=== PATIENT | female | born 1950 | race Caucasian/White ===

== ENCOUNTER 2021-12-06 17:45 | Inpatient (IN) | payer MEDICARE, OTHER ==
[~2021-12-06] VITALS: Ht 152.4 cm; Wt 64.0 kg
[~2021-12-06 17:45] MED LIST: ASPI-605 PO; BENA40TA8 PO; BENFOTIAMINE PO; METF-441 PO; RANO500T3 PO
[2021-12-06] MEDS ORDERED: IV NORMAL SALINE 500 ML BAG IV ONE (18:00)
[2021-12-06] MEDS ORDERED: MORPHINE SULFATE 4 MG/1 ML DISP.SYRIN IV ONE (18:00)
[2021-12-06] MEDS ORDERED: ONDANSETRON 4 MG/2 ML VIAL IV ONE (18:00)
[2021-12-06 18:42] LABS: HEMATOCRIT 35.6 % (31.2-41.9); MEAN CORPUSCULAR HEMOGLOBIN 33.2 uug (24.7-32.8); MEAN CORPUSCULAR VOLUME 95.4 fL (75.5-95.3); PLATELET COUNT (AUTO) 115 K/uL (179-408)
[2021-12-06 18:47] LABS: CARBON DIOXIDE 25 mmol/L (21-32); CHLORIDE 102 mmol/L (98-107); CREATININE 0.8 mg/dL (0.6-1.3); GLUCOSE 213 mg/dL (74-106); POTASSIUM 4.1 mmol/L (3.5-5.1); UREA NITROGEN, BLOOD 20 mg/dL (7-18)
[2021-12-06 18:52] LABS: ALANINE AMINOTRANSFERASE 29 U/L (14-59); ALKALINE PHOSPHATASE 73 U/L (50-136); ASPARTATE AMINOTRANSFERASE 21 U/L (15-37); LIPASE 168 U/L (73-393); TOTAL PROTEIN, SERUM 7.1 g/dL (6.4-8.2)
[2021-12-06] MEDS ORDERED: MORPHINE SULFATE 4 MG/1 ML DISP.SYRIN ONE (19:18)
[2021-12-06] MEDS ORDERED: ONDANSETRON 4 MG/2 ML VIAL ONE ×2 (19:18→19:24)
[2021-12-06 19:21] LABS: EOSINOPHILS % (MANUAL) 2 % (0-8); LYMPHOCYTES % (MANUAL) 26 % (20-40); MONOCYTES % (MANUAL) 5 % (2-10); NEUTROPHILS % (MANUAL) 67 % (42-75)
[2021-12-06] MEDS ORDERED: SWABABLE VALVE TRANSFER SET EA MC ONE (19:22)
[2021-12-06] MEDS ORDERED: IOHEXOL 300MG/ML 100 ML INFUS..BTL ONE (19:22)
[2021-12-06] MEDS ORDERED: IV NORMAL SALINE 250 ML IV ONE (19:22)
[2021-12-06 19:25] LABS: *BILIRUBIN,URIN NEGATIVE (NEGATIVE); *BLOOD, URINE NEGATIVE (NEGATIVE); *CLARITY,URINE CLEAR (CLEAR); *COLOR,URINE YELLOW (YELLOW); *KETONES,URINE NEGATIVE (NEGATIVE); *UROBILINOGEN,URINE 0.2 E.U./dl (NORMAL); LEUKOCYTE ESTERASE ,URINE NEGATIVE (NEGATIVE); NITRITE, URINE NEGATIVE (NEGATIVE); UGLUCOSE NEGATIVE (NEGATIVE)
[2021-12-06] MEDS ORDERED: PIPERACILLIN SODIUM/TAZOBACTAM 3.375 G in IV DEXTROSE 5% 50 ML IV ONE (21:15)
[2021-12-06] MEDS ORDERED: PIPERACILLIN/TAZOBACTAM/D5W 50 ML IV ONE (21:51)
[2021-12-07] MEDS ORDERED: ACETAMINOPHEN 650 MG SUPP.RECT RC PRN
[2021-12-07] MEDS ORDERED: ONDANSETRON 4 MG/2 ML VIAL IV PRN
[2021-12-07] MEDS: IV D5/ 0.9% NACL 1,000 ML IV PRN ×2 (00:37→14:06)
[2021-12-07 04:00] VITALS: BP 136/56
[2021-12-07] MEDS ORDERED: PIPERACILLIN SODIUM/TAZO 3.375 GM VIAL ONE (05:59)
[2021-12-07] MEDS ORDERED: PIPERACILLIN SODIUM/TAZOBACTAM 3.375 G in IV DEXTROSE 5% 50 ML IV SCH ×2 (06:00→14:00)
[2021-12-07 06:44] LABS: HEMATOCRIT 34.8 % (31.2-41.9); MEAN CORPUSCULAR HEMOGLOBIN 32.5 uug (24.7-32.8); PLATELET COUNT (AUTO) 98 K/uL (179-408)
[2021-12-07 07:03] LABS: BILIRUBIN,TOTAL 0.5 mg/dL (0.2-1.0); CREATININE 0.7 mg/dL (0.6-1.3); MAGNESIUM 1.7 mg/dL (1.8-2.4); PHOSPHOROUS 3.9 mg/dL (2.5-4.9); POTASSIUM 3.8 mmol/L (3.5-5.1); TOTAL PROTEIN, SERUM 6.1 g/dL (6.4-8.2)
[2021-12-07] MEDS: PANTOPRAZOLE SODIUM 40 MG VIAL IV SCH (09:06)
[2021-12-07] MEDS: MAGNESIUM SULFATE/D5W 100 ML IV SCH ×2 (09:50→10:52)
[2021-12-07 10:59] VITALS: BP 131/58
[2021-12-07] MEDS: PIPERACILLIN SODIUM/TAZOBACTAM 3.375 G in IV DEXTROSE 5% 100 ML IV SCH ×2 (14:04→21:36)
[2021-12-07] MEDS ORDERED: DEXTROSE 50% 50 ML DISP.SYRIN IV PRN (15:45)
[2021-12-07 15:56] VITALS: BP 139/54
[2021-12-07] MEDS: BLOOD SUGAR DIAGNOSTIC 1 EACH STRIP VI SCH ×2 (16:48→21:50)
[2021-12-07] MEDS: INSULIN REGULAR, HUMAN 300 UNIT/3 ML VIAL SQ PRN (18:02)
[2021-12-07 20:00] VITALS: BP 124/57
[2021-12-08] MEDS: IV D5/ 0.9% NACL 1,000 ML IV PRN (03:47)
[2021-12-08 04:00] VITALS: BP 143/52
[2021-12-08] MEDS: PIPERACILLIN SODIUM/TAZOBACTAM 3.375 G in IV DEXTROSE 5% 100 ML IV SCH ×2 (06:28→13:01)
[2021-12-08] MEDS: BLOOD SUGAR DIAGNOSTIC 1 EACH STRIP VI SCH ×3 (06:40→16:37)
[2021-12-08 06:58] LABS: MEAN CORPUSCULAR HEMOGLOBIN 32.6 uug (24.7-32.8); MEAN CORPUSCULAR VOLUME 95.9 fL (75.5-95.3); PLATELET COUNT (AUTO) 95 K/uL (179-408)
[2021-12-08 07:34] LABS: BILIRUBIN,DIRECT 0.2 mg/dL (0.0-0.2); BILIRUBIN,TOTAL 0.5 mg/dL (0.2-1.0); CREATININE 0.7 mg/dL (0.6-1.3); MAGNESIUM 1.8 mg/dL (1.8-2.4); POTASSIUM 3.4 mmol/L (3.5-5.1); TOTAL PROTEIN, SERUM 5.8 g/dL (6.4-8.2)
[2021-12-08] MEDS: PANTOPRAZOLE SODIUM 40 MG VIAL IV SCH (08:15)
[2021-12-08] MEDS: INSULIN REGULAR, HUMAN 300 UNIT/3 ML VIAL SQ PRN ×3 (08:21→16:40)
[2021-12-08] MEDS ORDERED: POTASSIUM CHLORIDE 20 MEQ POWDER PACKET PO ONE (09:45)
[2021-12-08 11:47] VITALS: BP 146/61
[2021-12-08] MEDS ORDERED: AMOX-430 PO (12:55)
[2021-12-08 16:53] VITALS: BP 139/65
== END 2021-12-08 17:35 | disposition home or self-care (01) | DRG 446 ==
LOC: ER 17:47 → TELE3 23:09 → MEDSURG3 12-07 16:36
PROVIDERS: ADMIT Nurse Practitioner Acute Care; ATTEND Nurse Practitioner Acute Care
DX: K80.42 Calculus of bile duct with acute cholecystitis without obstruction (principal); E11.9 Type 2 diabetes mellitus without complications; G89.29 Other chronic pain; K76.0 Fatty (change of) liver, not elsewhere classified; D72.819 Decreased white blood cell count, unspecified; E78.5 Hyperlipidemia, unspecified; K74.60 Unspecified cirrhosis of liver; I10 Essential (primary) hypertension; Z79.84 Long term (current) use of oral hypoglycemic drugs; N94.89 Other specified conditions associated with female genital organs and menstrual cycle; Z20.822 Contact with and (suspected) exposure to COVID-19; A08.4 Viral intestinal infection, unspecified
CPT/HCPCS: 36415; 70030-TC; 83690; 83735; 84100; 85025; 85610; A4663; C9113; G0378; J1815; J2270; J2405; J2543; J3475; J7030; J7042; J7050; J7060; Q9967

== ENCOUNTER 2022-06-14 18:26 | Inpatient (IN) | payer OTHER ==
[~2022-06-14] VITALS: Ht 154.9 cm; Wt 63.5 kg
[~2022-06-14 18:26] MED LIST changes: +AMOX-430 PO
--- NOTE | 2022-06-14 19:30 | NUR ---
pt came to er and states her blood sugar is low.
[2022-06-14 20:19] LABS: HEMATOCRIT 39.8 % (31.2-41.9); MEAN CORPUSCULAR HEMOGLOBIN 32.3 uug (24.7-32.8); PLATELET COUNT (AUTO) 124 K/uL (179-408)
[2022-06-14 20:24] LABS: *BILIRUBIN,URIN NEGATIVE (NEGATIVE); *BLOOD, URINE NEGATIVE (NEGATIVE); *CLARITY,URINE CLEAR (CLEAR); *COLOR,URINE YELLOW (YELLOW); *KETONES,URINE TRACE (NEGATIVE); LEUKOCYTE ESTERASE ,URINE NEGATIVE (NEGATIVE); NITRITE, URINE NEGATIVE (NEGATIVE); UGLUCOSE 2+ (NEGATIVE)
[2022-06-14 20:34] LABS: BILIRUBIN,DIRECT 1.2 mg/dL (0.0-0.2); BILIRUBIN,TOTAL 1.8 mg/dL (0.2-1.0); TOTAL PROTEIN, SERUM 7.7 g/dL (6.4-8.2)
[2022-06-14 20:37] LABS: CARBON DIOXIDE 25 mmol/L (21-32); CHLORIDE 104 mmol/L (98-107); CREATININE 0.7 mg/dL (0.6-1.3); GLUCOSE 121 mg/dL (74-106); UREA NITROGEN, BLOOD 18 mg/dL (7-18)
--- NOTE | 2022-06-14 20:42 | NUR ---
pt went to cat scan and has returned.
--- NOTE | 2022-06-14 21:33 | NUR ---
informed DR. Arias that the pt is having pain. he will order some meds.
[2022-06-14] MEDS ORDERED: IV NORMAL SALINE 250 ML IV ONE (21:34)
[2022-06-14] MEDS ORDERED: IOHEXOL 300MG/ML 50 ML VIAL ONE (21:34)
[2022-06-14] MEDS ORDERED: SWABABLE VALVE TRANSFER SET EA MC ONE (21:34)
[2022-06-14] MEDS ORDERED: HYDROMORPHONE 1 MG/1 ML DISP.SYRIN ONE ×2 (21:37→23:31)
[2022-06-14] MEDS ORDERED: ONDANSETRON 4 MG/2 ML VIAL ONE (21:37)
[2022-06-14] MEDS ORDERED: ONDANSETRON 4 MG/2 ML VIAL IV ONE (21:45)
[2022-06-14] MEDS ORDERED: HYDROMORPHONE 1 MG/1 ML DISP.SYRIN IV ONE ×2 (21:45→23:15)
--- NOTE | 2022-06-14 22:19 | NUR ---
pt returned from cat scan.
--- NOTE | 2022-06-15 00:03 | NUR ---
call to [facility] panel Joey Georges will call back for admission.
--- NOTE | 2022-06-15 00:19 | NUR ---
Toño Sheffield called back for admission orders.
--- NOTE | 2022-06-15 00:29 | NUR ---
report was given to Mónica CURIEL pt to go to room 329.
--- NOTE | 2022-06-15 00:43 | NUR ---
pt transported via w/c with all belongings, VEENA Sales in room to receive the pt.
[2022-06-15] MEDS ORDERED: ACETAMINOPHEN 325 MG TABLET PO PRN (00:45)
[2022-06-15] MEDS ORDERED: HYDROMORPHONE 1 MG/1 ML DISP.SYRIN IV PRN (00:45)
[2022-06-15] MEDS ORDERED: ENOXAPARIN SODIUM 40 MG/0.4 ML DISP.SYRIN SQ SCH ×2 (00:45→21:00)
[2022-06-15] MEDS ORDERED: ONDANSETRON 4 MG/2 ML VIAL IV PRN (00:45)
[2022-06-15] MEDS ORDERED: REMEDY ESSENTIAL ZINC PASTE 113 GM TP PRN (00:45)
[2022-06-15] MEDS ORDERED: MAGNESIUM HYDROXIDE 30 ML LIQUID UDC PO PRN (00:45)
[2022-06-15] MEDS ORDERED: DEXTROSE 50% 50 ML DISP.SYRIN IV PRN (00:45)
[2022-06-15] MEDS ORDERED: MORPHINE SULFATE 2 MG/1 ML DISP.SYRIN IV PRN (00:45)
[2022-06-15] MEDS ORDERED: ZOLPIDEM 5 MG TABLET PO PRN (00:45)
--- NOTE | 2022-06-15 01:15 | NUR ---
received patient from ER via wheelchair .dx; acute pancreatitis. [id number].patient Turkish speaking but able to speak and understand Wallisian .patient able to walk to the bathroom hand held assist , noted bilateral lower extremities weakness . patient voided . escorted back to bed . advised patient to call for assistance and not to get oob by self call light placed with in reach . no s/s of pain no s/s of respiratory distress on room air oriented with room and call light .
[2022-06-15 01:30] VITALS: BP 104/50
--- NOTE | 2022-06-15 02:00 | NUR ---
instructed patient that she is NPO - NOTHING BY MOUTH .
[2022-06-15] MEDS: IV NS 1000 ML 1,000 ML IV PRN ×2 (02:15→18:37)
--- NOTE | 2022-06-15 02:15 | NUR ---
started on normal saline at 75 ml /hr via the right ac heplock .
--- NOTE | 2022-06-15 03:48 | NUR ---
patient called requesting for pain medication given Dilaudid for pain 06/19 , she said the pain is to her right shoulder and abdomen area .
[2022-06-15 04:34] VITALS: BP 152/62
[2022-06-15] MEDS: BLOOD SUGAR DIAGNOSTIC 1 EACH STRIP VI SCH ×4 (06:34→21:01)
[2022-06-15] MEDS ORDERED: MORPHINE SULFATE 4 MG/1 ML DISP.SYRIN IV PRN (08:16)
[2022-06-15] MEDS: LISINOPRIL 20 MG TABLET PO SCH (09:04)
[2022-06-15] MEDS: ASPIRIN EC 81 MG TABLET.DR PO SCH (09:04)
[2022-06-15] MEDS: levoFLOXacin 500 MG/D5W 500 MG in PREMIXED 1 EACH IV SCH (10:57)
[2022-06-15 11:47] VITALS: BP 102/47
[2022-06-15 15:24] VITALS: BP 106/45
[2022-06-15] MEDS: INSULIN REGULAR, HUMAN 300 UNIT/3 ML VIAL SQ PRN ×2 (16:41→21:04)
[2022-06-15 19:53] VITALS: BP 113/48
[2022-06-16 04:36] VITALS: BP 122/50
--- NOTE | 2022-06-16 06:45 | NUR ---
Patient slept intermittently during the night. Denies pain or any discomfort. In no acute distress. Assisted to the bathroom. Bed in locked and low position. Call light within easy reach.
[2022-06-16] MEDS: BLOOD SUGAR DIAGNOSTIC 1 EACH STRIP VI SCH (06:51)
[2022-06-16 07:08] LABS: HEMATOCRIT 32.5 % (31.2-41.9); MEAN CORPUSCULAR HEMOGLOBIN 33.7 uug (24.7-32.8); MEAN CORPUSCULAR VOLUME 95.9 fL (75.5-95.3); PLATELET COUNT (AUTO) 100 K/uL (179-408)
[2022-06-16 07:17] LABS: BILIRUBIN,DIRECT 0.2 mg/dL (0.0-0.2); BILIRUBIN,TOTAL 0.6 mg/dL (0.2-1.0); CREATININE 0.7 mg/dL (0.6-1.3); POTASSIUM 3.7 mmol/L (3.5-5.1)
[2022-06-16 07:33] LABS: BILIRUBIN,TOTAL 0.6 mg/dL (0.2-1.0); CREATININE 0.7 mg/dL (0.6-1.3); POTASSIUM 3.7 mmol/L (3.5-5.1)
[2022-06-16 07:50] LABS: EOSINOPHILS % (MANUAL) 2 % (0-8); LYMPHOCYTES % (MANUAL) 22 % (20-40); MONOCYTES % (MANUAL) 11 % (2-10); NEUTROPHILS % (MANUAL) 65 % (42-75)
[2022-06-16 08:00] VITALS: BP 122/50
[2022-06-16] MEDS: LISINOPRIL 20 MG TABLET PO SCH (08:00)
[2022-06-16] MEDS: ASPIRIN EC 81 MG TABLET.DR PO SCH (08:00)
[2022-06-16] MEDS: levoFLOXacin 500 MG/D5W 500 MG in PREMIXED 1 EACH IV SCH (10:22)
--- NOTE | 2022-06-16 12:14 | NUR ---
dc orders received noted and carried out.dc instruction and education given to the pt and her son .dc heplock per md orders,pt left the facility via private car in stable condition
== END 2022-06-16 11:50 | disposition home or self-care (01) | DRG 440 ==
LOC: ER 18:26 → MEDSURG3 06-15 00:21
PROVIDERS: ADMIT Internal Medicine; ATTEND Internal Medicine
DX: K85.90 Acute pancreatitis without necrosis or infection, unspecified (principal); K74.60 Unspecified cirrhosis of liver; R74.01 Elevation of levels of liver transaminase levels; Z79.84 Long term (current) use of oral hypoglycemic drugs; Z20.822 Contact with and (suspected) exposure to COVID-19; K42.9 Umbilical hernia without obstruction or gangrene; E11.9 Type 2 diabetes mellitus without complications; K59.00 Constipation, unspecified
CPT/HCPCS: 36415; 70030-TC; 70450; 71045; 78445; 83690; 84484; 85025; 85730; 93005; A4663; A9537; G0378; J1170; J1650; J1815; J1956; J2405; J7040; Q9967